=== PATIENT | female | born 1955 | race Caucasian/White ===

== ENCOUNTER 2019-03-15 07:39 | Day surgery (SDC) | payer BC, MEDICAID ==
[2019-03-15] MEDS ORDERED: Sodium Chloride 0.9% 10 ML Syringe FLUSH PRN (08:00)
--- NOTE | 2019-03-15 12:26 | OR ---
DATE OF PROCEDURE: 03/15/2019 SURGEON: Anitra Douglas MD POSTOPERATIVE CARE: Postoperative care will be provided mainly at the [address] [place] [address] [facility] in conjunction with [facility]. PREOPERATIVE DIAGNOSIS: Cataract, right eye. POSTOPERATIVE DIAGNOSIS: Cataract, right eye. PROCEDURE: Phacoemulsification with intraocular lens placement, right eye. ANESTHESIA: Topical and intracameral. ESTIMATED BLOOD LOSS: Minimal. COMPLICATIONS: None. PATHOLOGY SPECIMENS: None. SURGICAL FINDINGS: None. INDICATION FOR PROCEDURE: The patient is a 63-year-old female with history of a visually significant cataract in the right eye, which interfered with activities of daily living. This consisted of a nuclear sclerosis cataract. Following careful discussion of the risks, benefits and alternatives to cataract extraction with intraocular lens placement including blindness and , the patient elected to proceed, and informed, written consent was obtained prior to the procedure. DESCRIPTION OF THE PROCEDURE: The patient was previously identified, and a dre placed above the right eye. All sources, including the patient, indicated that the right eye was the correct eye. The patient was subsequently taken to the operating room where standard monitors were applied. The patient was then prepped and draped in the usual sterile fashion for ophthalmic surgery. Attention was first directed at the 12 o'clock position where a paracentesis port was fashioned. Shugar solution followed by Viscoat was instilled into the eye. Attention was then directed to the 8:30 position where a triplanar incision was made in a near-clear manner using a keratome. A continuous capsulorrhexis was then made using a combination of the cystotome and Utrata forceps. Hydrodissection was achieved using a balanced salt solution, and the lens rotated nicely. Phacoemulsification was then done using a modified rknasz-gdz-dyfebce technique without complication. Phaco time was 10.17 CDE. The remaining cortex was removed using the irrigation/aspiration handpiece. Provisc was then instilled into the eye. A Technis lens, model [id number], at 20.5 diopters was then placed in the capsular bag using an Ettrick injector. The remaining viscoelastic was removed using the irrigation/aspiration forceps. All wounds were then checked and found to be watertight. The lid speculum and drapes were removed. Maxitrol ointment was placed in the patient's right eye, and the eye was shielded. The patient tolerated the procedure well. The patient was instructed to follow up tomorrow. All needle and sponge counts were correct at the end of the procedure. Anitra Douglas MD /[id number]
== END 2019-03-15 09:19 | disposition home or self-care (01) ==
LOC: JP.SDS 07:39
PROVIDERS: ATTEND Ophthalmology
DX: H25.11 Age-related nuclear cataract, right eye (principal); I10 Essential (primary) hypertension; E78.5 Hyperlipidemia, unspecified; F17.200 Nicotine dependence, unspecified, uncomplicated; Z88.2 Allergy status to sulfonamides; Z88.8 Allergy status to other drugs, medicaments and biological substances
CPT/HCPCS: 66984; V2632

== ENCOUNTER 2019-05-03 06:23 | Day surgery (SDC) | payer MEDICAID ==
[2019-05-03] MEDS ORDERED: Sodium Chloride 0.9% 10 ML Syringe FLUSH PRN (07:00)
--- NOTE | 2019-05-03 10:45 | OR ---
DATE OF PROCEDURE: 05/03/2019 SURGEON: Anitra Douglas MD POSTOPERATIVE CARE: Postoperative care will be provided mainly at the [address] [place] [address] [facility] in conjunction with [facility]. PREOPERATIVE DIAGNOSIS: Cataract, left eye. POSTOPERATIVE DIAGNOSIS: Cataract, left eye. PROCEDURE: Phacoemulsification with intraocular lens placement, left eye. ANESTHESIA: Topical and intracameral. ESTIMATED BLOOD LOSS: Minimal. COMPLICATIONS: None. PATHOLOGY SPECIMENS: None. SURGICAL FINDINGS: None. INDICATION FOR PROCEDURE: The patient is a 63-year-old female with history of a visually significant cataract in the left eye, which interfered with activities of daily living. This consisted of a nuclear sclerosis cataract. Following careful discussion of the risks, benefits and alternatives to cataract extraction with intraocular lens placement including blindness and , the patient elected to proceed, and informed, written consent was obtained prior to the procedure. DESCRIPTION OF THE PROCEDURE: The patient was previously identified, and a dre placed above the left eye. All sources, including the patient, indicated that the left eye was the correct eye. The patient was subsequently taken to the operating room where standard monitors were applied. The patient was then prepped and draped in the usual sterile fashion for ophthalmic surgery. Attention was first directed at the 12 o'clock position where a paracentesis port was fashioned. Shugar solution followed by Viscoat was instilled into the eye. Attention was then directed to the 8:30 position where a triplanar incision was made in a near-clear manner using a keratome. A continuous capsulorrhexis was then made using a combination of the cystotome and Utrata forceps. Hydrodissection was achieved using a balanced salt solution, and the lens rotated nicely. Phacoemulsification was then done using a modified rhylhl-ibb-zqkbaxa technique without complication. Phaco time was 9.9 CDE. The remaining cortex was removed using the irrigation/aspiration handpiece. Provisc was then instilled into the eye. A Technis lens, model [id number], at 21.0 diopters was then placed in the capsular bag using an [place] injector. The remaining viscoelastic was removed using the irrigation/aspiration forceps. All wounds were then checked and found to be watertight. The lid speculum and drapes were removed. Maxitrol ointment was placed in the patient's left eye, and the eye was shielded. The patient tolerated the procedure well. The patient was instructed to follow up tomorrow. All needle and sponge counts were correct at the end of the procedure. Anitra Douglas MD /[id number]
== END 2019-05-03 08:19 | disposition home or self-care (01) ==
LOC: JP.SDS 06:23
PROVIDERS: ATTEND Ophthalmology
DX: H25.12 Age-related nuclear cataract, left eye (principal); I10 Essential (primary) hypertension; E78.00 Pure hypercholesterolemia, unspecified; F17.200 Nicotine dependence, unspecified, uncomplicated; Z88.2 Allergy status to sulfonamides; Z88.8 Allergy status to other drugs, medicaments and biological substances
CPT/HCPCS: V2632

== ENCOUNTER 2021-01-22 17:08 | Inpatient (IN) | payer MEDICARE ==
[2021-01-22] MEDS ORDERED: Ondansetron 4 MG/2 ML SDV IV PRN (17:20)
[2021-01-22] MEDS ORDERED: Sodium Chloride 0.9% 10 ML Syringe FLUSH PRN (17:20)
[2021-01-22] MEDS ORDERED: Polyethylene Glycol 3350 Powder 17 GM Packet PO PRN (17:20)
--- NOTE | 2021-01-22 17:24 | PCM.HP.2 ---
H&P History of Present Illness - General Date of Service: 01/22/21 Admit Problem/Dx: Admission Diagnosis/Problem Admission Diagnosis/Problem Hyponatremia Source of Information: Patient, Provider, RN Notes Reviewed History Limitations: Reports: No Limitations - History of Present Illness Initial Comments - Free Text/Narative: Ms. Kennedy 65-year-old woman who is admitted as a direct admission from the clinic with hyponatremia and infection of her left lower leg. She scraped her leg about 2 weeks ago and since then has developed infection with development of a large ulcerated area on the lateral aspect of the left lower leg. She had been seen and evaluated by Dr. Valderrama and the plan was to proceed with debridement of the wound tomorrow. She has been feeling well but on follow-up in the clinic labs showed a sodium yesterday of 125. She returned today for follow-up labs and sodium was further decreased at 121. She does have a history of chronic peripheral edema as well as significant daily alcohol intake of 12 to 16 ounces per day. - Related Data Allergies/Adverse Reactions: Allergies Allergy/AdvReac Type Severity Reaction Status Date / Time hydrochlorothiazide Allergy Unknown Chest Pain Verified 04/30/19 16:22 bacitracin Allergy Rash Verified 01/20/21 14:16 spectinomycin [From Trobicin] Allergy Swelling Verified 05/03/19 06:50 Sulfa (Sulfonamide Allergy Itching Verified 04/30/19 16:22 Antibiotics) Home Medications: Home Meds Aspirin [Halfprin] 81 mg PO DAILY 03/13/19 [History] amLODIPine [Norvasc] 5 mg PO DAILY 03/13/19 [History] gemfibroziL [Gemfibrozil] 600 mg PO BIDAC 03/13/19 [History] Multivitamin [Multi-Vitamin Daily] 1 each PO DAILY 04/03/19 [History] timoloL maleate [Timoptic 0.5% Ophth Soln] 1 drop EYEBOTH DAILY 05/03/19 [History] Ciprofloxacin HCl [Cipro] 500 mg PO BID 01/20/21 [History] Gabapentin [Neurontin] 100 mg PO TID 01/20/21 [History] Olmesartan Medoxomil [Benicar] 40 mg PO DAILY 01/20/21 [History] Past Medical History HEENT History: Reports: Allergic Rhinitis, Cataract, Impaired Vision Cardiovascular History: Reports: High Cholesterol, Hypertension Genitourinary History: Reports: None [employer] History: Reports: Musculoskeletal History: Reports: Fracture - Infectious Disease History Infectious Disease History: Reports: Measles, Mumps - Past Surgical History HEENT Surgical History: Reports: Cataract Surgery Cardiovascular Surgical History: Reports: None Female Surgical History: Reports: Breast Biopsy, Nephrectomy, Tubal Ligation, Other (See Below) Other Female Surgeries/Procedures: heminephrectomy Musculoskeletal Surgical History: Reports: None Social & Family History - Caffeine Use Caffeine Use: Reports: Coffee H&P Review of Systems - Review of Systems: Review Of Systems: See Below General: Reports: No Symptoms HEENT: Reports: No Symptoms Pulmonary: Reports: No Symptoms Cardiovascular: Reports: No Symptoms Gastrointestinal: Reports: No Symptoms Genitourinary: Reports: No Symptoms Musculoskeletal: Reports: No Symptoms Skin: Reports: Other (Large infected ulcer lateral aspect left lower leg) Psychiatric: Reports: No Symptoms Neurological: Reports: No Symptoms Hematologic/Lymphatic: Reports: No Symptoms Immunologic: Reports: No Symptoms Exam - Exam Exam: See Below - Exam General: Alert, Oriented, Cooperative, Mild Distress HEENT: Conjunctiva Clear, Hearing Intact, Mucosa Moist & [place], Normal Nasal Septum, Posterior Pharynx Clear, Pupils Equal Neck: Supple, Trachea Midline, +2 Carotid Pulse wo Bruit Lungs: Clear to Auscultation, Normal Respiratory Effort, Decreased Breath Sounds Cardiovascular: Regular Rate, Regular Rhythm, Normal S1, Normal S2. No: Systolic Murmur, Diastolic Murmur GI/Abdominal Exam: Soft, Non-Tender, No Organomegaly, No Distention Back Exam: Normal Inspection, Full Range of Motion Extremities: Non-Tender, Pedal Edema Skin: Wound (Large open wound with surrounding erythema lateral aspect left lower leg) Neurological: Cranial Nerves Intact, Strength Equal Bilateral, Normal Speech, Normal Tone, Sensation Intact. No: Focal Deficit Neuro Extensive - Mental Status: Alert, Oriented x3, Normal Mood/Affect, Normal Cognition, Memory Intact - Patient Data Result Diagrams: 01/22/21 17:30 *Q Meaningful Use (ADM) - VTE *Q VTE Pharmacological Contraindications *Q: Patient Scheduled Surgery - VTE Risk Assess *Q Each Risk Factor Represents 1 Point: Swollen Legs, Current Total Score 1 Point Risk Factors: 1 Each Risk Factor Represents 2 Points: Age 60 - 74 Years Total Score 2 Point Risk Factors: 2 Each Risk Factor Represents 3 Points: None Total Score 3 Point Risk Factors: 0 Each Risk Factor Represents 5 Points: None Total Score 5 Point Risk Factors: 0 Venous Thromboembolism Risk Factor Score *Q: 3 Problem List Initiated/Reviewed/Updated: Yes Orders Last 24hrs: Active Orders 24 hr Category Date Time Status Patient Status [ADT] Routine ADT 01/22/21 17:16 Ordered Ambulate [RC] QID Care 01/22/21 17:16 Ordered Height and Weight [RC] DAILY Care 01/22/21 17:16 Ordered Intake and Output [RC] QSHIFT Care 01/22/21 17:16 Ordered Notify Provider Consults [RC] ASDIRECTED Care 01/22/21 17:22 Ordered Notify Provider Vital Signs [RC] ASDIRECTED Care 01/22/21 17:16 Ordered Oxygen Therapy [RC] PRN Care 01/22/21 17:16 Ordered Peripheral IV Care [RC] . DIRECTED Care 01/22/21 17:22 Ordered Up With Assistance [RC] ASDIRECTED Care 01/22/21 17:16 Ordered Up to Chair [RC] QID Care 01/22/21 17:16 Ordered VTE/DVT Education [RC] Per Unit Routine Care 01/22/21 17:16 Ordered Vital Signs [RC] Q4H Care 01/22/21 17:16 Ordered Consult to Physician [CONS] Routine Cons 01/22/21 17:20 Ordered Nothing per Oral After Midnight Diet [DIET] Diet 01/23/21 Breakfast Ordered Regular Diet [DIET] Diet 01/22/21 Dinner Ordered BASIC METABOLIC PANEL,BMP [CHEM] Timed Lab 01/23/21 05:00 Ordered CBC WITH AUTO DIFF [HEME] Stat Lab 01/22/21 17:20 Ordered CBC WITH AUTO DIFF [HEME] Timed Lab 01/23/21 05:00 Ordered COMPREHENSIVE METABOLIC PN,CMP [CHEM] Stat Lab 01/22/21 17:20 Ordered SODIUM,NA [CHEM] Stat Lab 01/22/21 23:00 Ordered Acetaminophen [TylenoL] Med 01/22/21 17:20 Ordered 650 mg PO Q4H PRN Meropenem [Merrem] 1 gm Med 01/22/21 17:30 Ordered Sodium Chloride 0.9% [Normal Saline] 100 ml IV Q8H Ondansetron [Zofran] Med 01/22/21 17:20 Ordered 4 mg IV Q4H PRN Sodium Chloride 0.9% @ 125 MLS/HR (1000ml) Med 01/22/21 17:30 Ordered Sodium Chloride 0.9% [Normal Saline] 1,000 ml IV ASDIRECTED Sodium Chloride 0.9% [Saline Flush] Med 01/22/21 17:20 Ordered 10 ml FLUSH ASDIRECTED PRN polyethylene glycoL 3350 [MiraLAX] Med 01/22/21 17:20 Ordered 17 gm PO DAILY PRN Peripheral IV Insertion Adult [OM.PC] Routine Oth 01/22/21 17:20 Ordered VTE Pharmacological Contraindications [AST] Per Unit Oth 01/22/21 17:16 Ordered Routine Resuscitation Status Routine Resus Stat 01/22/21 17:16 Ordered Medication Orders Acetaminophen (Acetaminophen 325 Mg Tab) 650 mg PO Q4H PRN PRN Reason: Pain (Mild 1-3)/fever Sodium Chloride (Normal Saline) 1,000 mls @ 125 mls/hr IV ASDIRECTED JALYN Meropenem 1 gm/ Sodium (Chloride) 100 mls @ 200 mls/hr IV Q8H JALYN Ondansetron HCl (Ondansetron 4 Mg/2 Ml Sdv) 4 mg IV Q4H PRN PRN Reason: Nausea/Vomiting Polyethylene Glycol (Polyethylene Glycol 3350 Powder 17 Gm Packet) 17 gm PO DAILY PRN PRN Reason: Constipation Sodium Chloride (Sodium Chloride 0.9% 10 Ml Syringe) 10 ml FLUSH ASDIRECTED PRN PRN Reason: Keep Vein Open Assessment/Plan Comment:: ASSESSMENT AND PLAN HYPONATREMIA-may be delusional in nature, she does have peripheral edema. Less likely SIADH related to current infection. -IV normal saline -Reassess sodium later tonight and in a.m. INFECTED ULCER LEFT LOWER LEG-she scraped the leg with a fall about 2 weeks ago and it has become progressively worse during that period of time. -Consult Dr. Valderrama, if stable consider proceeding with debridement in a.m. -Meropenem 1 g IV every 8 hours pending cultures from surgery HISTORY OF ALCOHOL ABUSE-she admits to intake of 12 to 16 ounces of vodka per day -Alcohol withdrawal protocol -Banana bag MAINTENANCE ISSUES -DVT prophylaxis; hold on anticoagulation because of possible surgery -GI prophylaxis; not indicated -Haley catheter; not indicated -Nutrition; regular diet, n.p.o. after midnight -Nicotine dependence; she smokes but refuses nicotine replacement at this time CODE STATUS-FULL CODE ADMISSION STATUS-patient will be admitted to inpatient status, expect at least a 2 night hospital stay for evaluation and management of problems as outlined above. At the time of this admission I do not reasonably expected evaluation and management of this problem will require more than a 96 hour hospital stay. DISPOSITION-anticipate discharge to home after the hospital stay. PRIMARY CARE PROVIDER-Tanvi Aguillon - Mortality Measure Prognosis:: Good
[2021-01-22] MEDS ORDERED: Meropenem 1 GM in Sodium Chloride 0.9% 100 ML IV SCH (17:30)
[2021-01-22] MEDS ORDERED: MVI, Adult with Vitamin K 10 ML, Thiamine 100 MG, Folic Acid 1 MG, Magnesium Sulfate 2 ... IV ONE ×5 (17:49)
[2021-01-22] MEDS ORDERED: LORazepam 1 MG Tab PO SCH (18:00)
[2021-01-22] MEDS: Acetaminophen 325 MG Tab PO PRN ×2 (18:37→23:01)
[2021-01-22] MEDS: Meropenem 1 GM in Sodium Chloride 0.9% 100 ML IV SCH (18:38)
[2021-01-22] MEDS: Gabapentin 400 MG Cap PO SCH (19:39)
[2021-01-22] MEDS: Folic Acid 1 MG Tab PO SCH (19:39)
[2021-01-22] MEDS: Thiamine 100 MG Tab PO SCH (19:45)
[2021-01-23] MEDS: Gabapentin 400 MG Cap PO SCH ×2 (01:14→10:25)
[2021-01-23] MEDS: Acetaminophen 325 MG Tab PO PRN (03:44)
[2021-01-23] MEDS: Meropenem 1 GM in Sodium Chloride 0.9% 100 ML IV SCH ×2 (04:07→11:29)
[2021-01-23] MEDS: Sodium Chloride 0.9% 1,000 ML IV SCH ×2 (04:07→04:39)
--- NOTE | 2021-01-23 06:23 | PCM.SN.2 ---
- Free Text/Narrative Note: am labs O: Potassium 3.1. Sodium 128 A: hypokalemia P: Potassium 20 meq with lidocaine for comfort one, recheck Potassium at 0900
[2021-01-23] MEDS ORDERED: Gemfibrozil 600 MG Tab PO SCH (07:30)
[2021-01-23] MEDS: Folic Acid 1 MG Tab PO SCH (08:53)
[2021-01-23] MEDS: Thiamine 100 MG Tab PO SCH (08:54)
[2021-01-23] MEDS ORDERED: Aspirin 81 MG Tab.EC PO SCH (09:00)
[2021-01-23] MEDS ORDERED: Timolol Maleate 0.5% Ophth Soln 5 ML Bottle EYEBOTH SCH (09:00)
[2021-01-23] MEDS ORDERED: Losartan 50 MG Tab PO SCH (09:00)
[2021-01-23] MEDS: Potassium Chloride 20 MEQ, Lidocaine 1% 2 ML in Sodium Chloride 0.9% 100 ML IV SCH ×2 (09:14→13:44)
[2021-01-23] MEDS ORDERED: Lidocaine 2% Jelly 30 ML Tube ONE (10:56)
[2021-01-23] MEDS ORDERED: Lidocaine 1% with EPINEPHrine 1:100,000 50 ML MDV ONE (10:57)
[2021-01-23] MEDS ORDERED: Bupivacaine 0.5% 50 ML MDV ONE (10:57)
--- NOTE | 2021-01-23 13:47 | PCM.DCSUM1 ---
Discharge Summary - Hospital Course Brief History: Ms. Kennedy is a 65-year-old woman who was admitted to observation status as a direct admission from the clinic with hyponatremia. - Discharge Data Discharge Date: 01/23/21 Discharge Disposition: Home, Self-Care 01 Condition: Fair - Referral to Home Health Primary Care Physician: Tanvi Graves PA-C - Discharge Diagnosis/Problem(s) (1) Ulcer of left lower extremity SNOMED Code(s): 47644125 ICD Code: L97.929 - NON-PRS CHRONIC ULC UNSP PRT OF L LOW LEG W UNSP SEVERITY Status: Acute Current Visit: Yes (2) Infection SNOMED Code(s): 57991965 ICD Code: B99.9 - UNSPECIFIED INFECTIOUS DISEASE Status: Acute Current Visit: Yes Problem Details: lower leg (3) Hyponatremia SNOMED Code(s): 96004742 ICD Code: E87.1 - HYPO-OSMOLALITY AND HYPONATREMIA Status: Acute Current Visit: Yes (4) HTN (hypertension) SNOMED Code(s): 13562642 ICD Code: I10 - ESSENTIAL (PRIMARY) HYPERTENSION Status: Chronic Current Visit: No (5) Tobacco use disorder SNOMED Code(s): 130623325 ICD Code: F17.200 - NICOTINE DEPENDENCE, UNSPECIFIED, UNCOMPLICATED Status: Chronic Current Visit: No (6) EtOH dependence SNOMED Code(s): 34511805 ICD Code: F10.20 - ALCOHOL DEPENDENCE, UNCOMPLICATED Status: Chronic Current Visit: No - Patient Summary/Data Consults: Consultations 01/22/21 17:20 Consult to Physician [CONS] Routine Consulting Provider: Williams Valderrama Call Completed to Consulting Physician: Yes Reason for Consult: Wound infection 01/23/21 05:47 Consult to Physical Therapy [PT Evaluation and Treatment] [CONS] Routine Please Evaluate and Treat. PT Reason for Consult: Strengthening This query below is only for informational purposes and is not editable. Admission Diagnosis/Problem: Hyponatremia Hospital Course: Ms. Kennedy 65-year-old woman who is admitted as a direct admission from the clinic with hyponatremia and infection of her left lower leg. She scraped her leg about 2 weeks ago and since then has developed infection with development of a large ulcerated area on the lateral aspect of the left lower leg. She had been seen and evaluated by Dr. Valderrama and the plan was to proceed with debridement of the wound. She has been feeling well but on follow-up in the clinic labs showed a sodium yesterday of 125. She returned today for follow-up labs and sodium was further decreased at 121. She does have a history of chronic peripheral edema as well as significant daily alcohol intake of 12 to 16 ounces per day. On admission she was started on IV fluids with normal saline 125 cc/h. She also received a banana bag and was started on oral vitamin B12 and folic acid. By the following morning her sodium level had improved to 128. She was seen and evaluated by Dr. Valderrama. She was taken to the operating room for debridement of her left lower leg wound. She will be discharged home and will be restarted on her oral antibiotic therapy with ciprofloxacin. Wound VAC will be placed on and will be changed every third day. Follow-up appointment will be scheduled with Dr. Valderrama as well as a follow-up appointment with primary care provider within 1 week. - Patient Instructions Diet: Low Sodium Activity: As Tolerated Other/Special Instructions: Please schedule follow-up appointment with Dr. Valderrama. Please schedule follow-up appointment with primary care provider within 1 week. Continue antibiotic therapy with ciprofloxacin - Discharge Plan *PRESCRIPTION DRUG MONITORING PROGRAM REVIEWED*: Not Applicable *COPY OF PRESCRIPTION DRUG MONITORING REPORT IN PATIENT [place]: Not Applicable Home Medications: Home Meds gemfibroziL [Gemfibrozil] 600 mg PO BIDAC 03/13/19 [History] Ciprofloxacin HCl [Cipro] 500 mg PO BID 01/20/21 [History] Gabapentin [Neurontin] 100 mg PO TID 01/20/21 [History] Olmesartan Medoxomil [Benicar] 40 mg PO DAILY 01/20/21 [History] Referrals: Williams Valderrama MD [Physician] - 01/29/21 1:00 pm (Please arrive 15 minutes early to register for your appointment. ) - Discharge Summary/Plan Comment DC Time >30 min.: No Total # of Minutes for Discharge Time: 20 - Patient Data Vitals - Most Recent: Last Vital Signs Temp 96.8 F L 01/23/21 12:40 Pulse 82 01/23/21 12:55 Resp 18 01/23/21 12:55 BP 105/68 01/23/21 12:55 Pulse Ox 98 01/23/21 12:55 Weight - Most Recent: 124 lb 15.998 oz I&O - Last 24 hours: Intake & Output 01/22/21 01/23/21 01/23/21 22:59 06:59 14:59 Intake Total 1195 75 Output Total 162 482 4497 Balance -708 356 -5120 Lab Results - Last 24 hrs: Laboratory Results - last 24 hr 01/22/21 01/22/21 01/22/21 Range/Units 17:30 17:30 23:12 WBC 16.0 H (4.5-11.0) K/uL RBC 3.33 (3.30-5.50) M/uL Hgb 12.1 (12.0-15.0) g/dL Hct 33.1 L (36.0-48.0) % MCV 99 H (80-98) fL MCH 36 H (27-31) pg MCHC 37 H (32-36) % Plt Count 366 (150-400) K/uL Neut % (Auto) 82.1 H (36-66) % Lymph % (Auto) 9.5 L (24-44) % [place] % (Auto) 7.5 H (2-6) % Eos % (Auto) 0.7 L (2-4) % Baso % (Auto) 0.2 (0-1) % Sodium 120 L 124 L (140-148) mmol/L Potassium 3.7 (3.6-5.2) mmol/L Chloride 87 L (100-108) mmol/L Carbon Dioxide 17 L (21-32) mmol/L Anion Gap 19.7 H (5.0-14.0) mmol/L BUN 11 (7-18) mg/dL Creatinine 0.8 (0.6-1.0) mg/dL Est Cr Clr Drug Dosing TNP Estimated GFR (MDRD) > 60 (>60) Glucose 103 (74-106) mg/dL Calcium 8.7 (8.5-10.1) mg/dL Total Bilirubin 0.3 (0.2-1.0) mg/dL AST 34 (15-37) U/L ALT 27 (12-78) U/L Alkaline Phosphatase 107 (46-116) U/L Total Protein 7.0 (6.4-8.2) g/dL Albumin 3.0 L (3.4-5.0) g/dL Globulin 4.0 H (2.3-3.5) g/dL Albumin/Globulin Ratio 0.8 L (1.2-2.2) 01/23/21 01/23/21 01/23/21 Range/Units 04:59 04:59 09:22 WBC 12.6 H (4.5-11.0) K/uL RBC 2.96 L (3.30-5.50) M/uL Hgb 10.4 L (12.0-15.0) g/dL Hct 29.6 L (36.0-48.0) % MCV 100 H (80-98) fL MCH 35 H (27-31) pg MCHC 35 (32-36) % Plt Count 359 (150-400) K/uL Neut % (Auto) 83.6 H (36-66) % Lymph % (Auto) 8.2 L (24-44) % [place] % (Auto) 6.7 H (2-6) % Eos % (Auto) 1.3 L (2-4) % Baso % (Auto) 0.2 (0-1) % Sodium 128 L (140-148) mmol/L Potassium 3.1 L 3.5 L (3.6-5.2) mmol/L Chloride 96 L (100-108) mmol/L Carbon Dioxide 17 L (21-32) mmol/L Anion Gap 18.1 H (5.0-14.0) mmol/L BUN 9 (7-18) mg/dL Creatinine 0.7 (0.6-1.0) mg/dL Est Cr Clr Drug Dosing 68.27 Estimated GFR (MDRD) > 60 (>60) Glucose 90 (74-106) mg/dL Calcium 8.0 L (8.5-10.1) mg/dL Total Bilirubin (0.2-1.0) mg/dL AST (15-37) U/L ALT (12-78) U/L Alkaline Phosphatase (46-116) U/L Total Protein (6.4-8.2) g/dL Albumin (3.4-5.0) g/dL Globulin (2.3-3.5) g/dL Albumin/Globulin Ratio (1.2-2.2) Med Orders - Current: Current Medications Acetaminophen (Acetaminophen 325 Mg Tab) 650 mg PO Q4H PRN PRN Reason: Pain (Mild 1-3)/fever Last Admin: 01/23/21 03:44 Dose: 650 mg Documented by: Aspirin (Aspirin 81 Mg Tab.Ec) 81 mg PO DAILY [facility] Last Admin: 01/23/21 08:53 Dose: Not Given Documented by: Folic Acid (Folic Acid 1 Mg Tab) 1 mg PO DAILY [facility] Last Admin: 01/23/21 08:53 Dose: Not Given Documented by: Gabapentin (Gabapentin 400 Mg Cap) 400 mg PO Q8H [facility] Stop: 01/26/21 18:01 Last Admin: 01/23/21 10:25 Dose: Not Given Documented by: Gemfibrozil (Gemfibrozil 600 Mg Tab) 600 mg PO BIDAC [facility] Last Admin: 01/23/21 08:53 Dose: Not Given Documented by: Sodium Chloride (Normal Saline) 1,000 mls @ 125 mls/hr IV ASDIRECTED [facility] Last Admin: 01/23/21 04:39 Dose: 125 mls/hr Documented by: Meropenem 1 gm/ Sodium (Chloride) 100 mls @ 200 mls/hr IV Q8H [facility] Last Admin: 01/23/21 11:29 Dose: 200 mls/hr Documented by: Lorazepam (Lorazepam 1 Mg Tab) 0 mg PO ASDIRECTED [facility]; Protocol Losartan Potassium (Losartan 50 Mg Tab) 100 mg PO DAILY [facility] Last Admin: 01/23/21 08:53 Dose: Not Given Documented by: Ondansetron HCl (Ondansetron 4 Mg/2 Ml Sdv) 4 mg IV Q4H PRN PRN Reason: Nausea/Vomiting Polyethylene Glycol (Polyethylene Glycol 3350 Powder 17 Gm Packet) 17 gm PO DAILY PRN PRN Reason: Constipation Sodium Chloride (Sodium Chloride 0.9% 10 Ml Syringe) 10 ml FLUSH ASDIRECTED PRN PRN Reason: Keep Vein Open Thiamine HCl (Thiamine 100 Mg Tab) 100 mg PO DAILY [facility] Last Admin: 01/23/21 08:54 Dose: Not Given Documented by: Timolol Maleate (Timolol Maleate 0.5% Ophth Soln 5 Ml Bottle) 0 ml EYEBOTH DAILY [facility] Last Admin: 01/23/21 09:07 Dose: 1 drop Documented by: Discontinued Medications Bupivacaine HCl (Bupivacaine 0.5% 50 Ml Mdv) Confirm Administered Dose 50 ml .ROUTE .STK-MED ONE Stop: 01/23/21 10:58 Meropenem 1 gm/ Sodium (Chloride) 100 mls @ 200 mls/hr IV Q8H [facility] Last Admin: 01/22/21 18:54 Dose: Not Given Documented by: Multivitamins/Minerals 10 ml/Thiamine HCl 100 mg/ Folic Acid 1 mg/ Magnesium Sulfate 2 gm/ Sodium Chloride 1,015.2 mls @ 100 mls/hr IV ONETIME ONE Stop: 01/23/21 03:58 Last Admin: 01/22/21 19:38 Dose: 100 mls/hr Documented by: Potassium Chloride 20 meq/Lidocaine HCl 2 ml/ Sodium Chloride 112 mls @ 56 mls/hr IV Q2H [facility] Stop: 01/23/21 12:59 Last Admin: 01/23/21 09:14 Dose: 56 mls/hr Documented by: Lidocaine HCl (Lidocaine 2% Jelly 30 Ml Tube) Confirm Administered Dose 30 ml .ROUTE .STK-MED ONE Stop: 01/23/21 10:57 Lidocaine/Epinephrine (Lidocaine 1% With Epinephrine 1:100,000 50 Ml Mdv) Confirm Administered Dose 50 ml .ROUTE .STK-MED ONE Stop: 01/23/21 10:58 - Exam General: Reports: Alert, Oriented, Cooperative, No Acute Distress Lungs: Reports: Clear to Auscultation, Normal Respiratory Effort Cardiovascular: Reports: Regular Rate, Regular Rhythm, No Murmurs GI/Abdominal Exam: Soft, Non-Tender, No Organomegaly, No Distention Skin: Reports: Other (Large ulcer lateral aspect left lower leg) *Q Meaningful Use (DIS) - VTE *Q VTE Pharmacological Contraindications *Q: Patient Scheduled Surgery
== END 2021-01-23 17:04 | disposition home or self-care (01) | DRG 641 ==
LOC: JP.MS 17:08
PROVIDERS: ADMIT Hospitalist; ATTEND Hospitalist
DX: E87.1 Hypo-osmolality and hyponatremia (principal); L97.929 Non-pressure chronic ulcer of unspecified part of left lower leg with unspecified severity; I10 Essential (primary) hypertension; F17.210 Nicotine dependence, cigarettes, uncomplicated; F10.20 Alcohol dependence, uncomplicated; E87.6 Hypokalemia; E78.5 Hyperlipidemia, unspecified; Z98.42 Cataract extraction status, left eye; Z98.41 Cataract extraction status, right eye; Z98.890 Other specified postprocedural states; Z87.81 Personal history of (healed) traumatic fracture; Z98.51 Tubal ligation status; Z90.5 Acquired absence of kidney
CPT/HCPCS: 36415; 80048; 80053; 84132; 84295; 85025; 97116-GP; 97162-GP; 97535-GP; A9270-GY; J2185; J3411; J3475; J3480; J3490; J7030

== ENCOUNTER 2021-02-16 11:16 | Emergency (ER) | payer MEDICARE | END 2021-02-16 12:00 | disposition left against medical advice (07) | LOC: JP.ED 11:16 | DX: Z53.21 Procedure and treatment not carried out due to patient leaving prior to being seen by health care provider (principal) ==

== ENCOUNTER 2021-02-16 12:51 | Emergency (ER) | payer MEDICARE ==
[2021-02-16] MEDS ORDERED: Sodium Chloride 0.9% 10 ML Syringe FLUSH PRN (15:55)
--- NOTE | 2021-02-16 15:58 | EDM.PDOC ---
<OfficerGalen - Last Filed: 02/16/21 17:47> ED HPI GENERAL MEDICAL PROBLEM - General Chief Complaint: General Stated Complaint: LATHARGIC Time Seen by Provider: 02/16/21 15:40 Source of Information: Reports: Patient, Family, Provider, RN Notes Reviewed History Limitations: Reports: No Limitations - History of Present Illness INITIAL COMMENTS - FREE TEXT/NARRATIVE: This 5-year-old female presents emergency department day complaint of lethargy, I did receive a call from the wound care physician Dr. Valderrama who is evaluating her lower extremity wound states the patient is very slow to respond does not seem to be acting herself. Daughter is with states she usually can carry on a good conversation she uses a walker at home. She does respond to me does respond to nursing staff but it is very slow. She denies any nausea vomiting shortness of breath or chest pain no difficulty with urination. Daughter states she did notice she had urine and it was foul-smelling. - Related Data Allergies Allergy/AdvReac Type Severity Reaction Status Date / Time hydrochlorothiazide Allergy Unknown Chest Pain Verified 02/16/21 15:42 bacitracin Allergy Rash Verified 02/16/21 15:42 spectinomycin [From Trobicin] Allergy Swelling Verified 02/16/21 15:42 Sulfa (Sulfonamide Allergy Itching Verified 02/16/21 15:42 Antibiotics) Home Meds: Home Meds gemfibroziL [Gemfibrozil] 600 mg PO BIDAC 03/13/19 [History] Gabapentin [Neurontin] 300 mg PO TID 01/20/21 [History] Olmesartan Medoxomil [Benicar] 40 mg PO DAILY 01/20/21 [History] Rosuvastatin [Crestor] 5 mg PO DAILY 02/16/21 [History] cilostazoL [Cilostazol] 50 mg PO BID 02/16/21 [History] Past Medical History HEENT History: Reports: Allergic Rhinitis, Cataract, Impaired Vision Cardiovascular History: Reports: High Cholesterol, Hypertension [employer] History: Reports: Musculoskeletal History: Reports: Fracture Dermatologic History: Reports: Cellulitis, Other (See Below) Other Dermatologic History: bilateral leg wounds - Infectious Disease History Infectious Disease History: Reports: Measles, Mumps - Past Surgical History HEENT Surgical History: Reports: Cataract Surgery Female Surgical History: Reports: Breast Biopsy, Nephrectomy, Tubal Ligation, Other (See Below) Other Female Surgeries/Procedures: left heminephrectomy Social & Family History - Tobacco Use Tobacco Use Status *Q: Light Tobacco User Years of Tobacco use: 50 Packs/Tins Daily: 0.5 - Caffeine Use Caffeine Use: Reports: Coffee - Alcohol Use Days Per Week of Alcohol Use: 7 Number of Drinks Per Day: 4 Total Drinks Per Week: 28 - Recreational Drug Use Recreational Drug Use: No ED ROS GENERAL - Review of Systems Review Of Systems: See Below Constitutional: Reports: Weakness, Other (Slow to respond). 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 spines bilaterally I did remove the wound wrapping up her chronic wounds the left looks significantly worse than the right there is some black eschar present on the left significant amount of weeping and drainage appreciate any red streaks or erythema progressing up the legs pedal pulses significantly diminished Exam Limited By: No Limitations General Appearance: Alert, No Apparent Distress, Other (Slow to respond) Eye Exam: Bilateral Eye: Normal Inspection Respiratory/Chest: No Respiratory Distress, Lungs Clear, Normal Breath Sounds, No Accessory Muscle Use, Chest Non-Tender Cardiovascular: Regular Rate, Rhythm, No Murmur GI/Abdominal: Soft, Non-Tender Back Exam: No: CVA Tenderness (R), CVA Tenderness (L) Extremities: Pedal Edema Course - Re-Assessments/Exams Free Text/Narrative Re-Assessment/Exam: 02/16/21 17:35 Called and discussed case with hospitalist on-call personally had no beds so we will manage her here in the emergency department plan is to slowly raise her sodium no greater than 6 mEq in a 24-hour. She is currently at 113 we will check sodiums every 2 hours we will use normal saline at 100 mEq/h she does have a significant white count source has not been identified will cover with antibiotics and the need I am suspicious it may be the chronic wounds which family states have gotten worse chest x-ray is unremarkable urine is unremarkable. 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 Also may have some cellulitis. Sepsis Event Note (ED) - Evaluation Sepsis Screening Result: No Definite Risk <Kyler Hernandez - Last Filed: 02/17/21 04:04> Course - Vital Signs Last Recorded V/S: Last Vital Signs Temp 97.2 F 02/16/21 23:00 Pulse 105 H 02/16/21 22:30 Resp 18 02/16/21 22:30 BP 128/59 L 02/16/21 22:30 Pulse Ox 98 02/16/21 22:30 - Orders/Labs/Meds Orders: Active Orders 24 hr Category Date Time Status Chest 1V Frontal [CR] Urgent Exams 02/16/21 17:22 Taken CULTURE BLOOD [BC] Urgent Lab 02/16/21 17:15 Received CULTURE BLOOD [BC] Urgent Lab 02/16/21 17:20 Received Blood Culture x2 Reflex Set [OM.PC] Urgent Oth 02/16/21 16:47 Ordered Peripheral IV Insertion Adult [OM.PC] Urgent Oth 02/16/21 15:55 Ordered Labs: Laboratory Tests 02/16/21 02/16/21 02/16/21 Range/Units 16:10 16:10 16:10 WBC 26.2 H (4.5-11.0) K/uL RBC 3.58 (3.30-5.50) M/uL Hgb 12.3 (12.0-15.0) g/dL Hct 33.7 L (36.0-48.0) % MCV 94 (80-98) fL MCH 34 H (27-31) pg MCHC 37 H (32-36) % Plt Count 465 H (150-400) K/uL Add Manual Diff Yes Neutrophils % (Manual) 74 H (36-66) % Band Neutrophils % 10 (5-11) % Lymphocytes % (Manual) 11 L (24-44) % Monocytes % (Manual) 3 (2-6) % Eosinophils % (Manual) 2 (2-4) % Sodium 113 L* (140-148) mmol/L Potassium 4.5 (3.6-5.2) mmol/L Chloride 82 L (100-108) mmol/L Carbon Dioxide 15 L (21-32) mmol/L Anion Gap 20.5 H (5.0-14.0) mmol/L BUN 24 H D (7-18) mg/dL Creatinine 1.2 H D (0.6-1.0) mg/dL Est Cr Clr Drug Dosing 41.50 mL/min Estimated GFR (MDRD) 45 L (>60) Glucose 102 (74-106) mg/dL Lactic Acid 1.2 (0.4-2.0) mmol/L Calcium 9.3 D (8.5-10.1) mg/dL Total Bilirubin 0.2 (0.2-1.0) mg/dL AST 22 (15-37) U/L ALT 21 (12-78) U/L Alkaline Phosphatase 121 H (46-116) U/L Troponin I < 0.017 (0.000-0.056) ng/mL C-Reactive Protein (0.0-0.3) mg/dL Total Protein 7.1 (6.4-8.2) g/dL Albumin 2.8 L (3.4-5.0) g/dL Globulin 4.3 H (2.3-3.5) g/dL Albumin/Globulin Ratio 0.7 L (1.2-2.2) Lipase 87 (73-393) U/L Procalcitonin ng/mL Urine Color (YELLOW) Urine Appearance (CLEAR) Urine pH (5.0-8.0) Ur Specific Denhoff (1.008-1.030) Urine Protein (NEGATIVE) mg/dL Urine Glucose (UA) (NEGATIVE) mg/dL Urine Ketones (NEGATIVE) mg/dL Urine Occult Blood (NEGATIVE) Urine Nitrite (NEGATIVE) Urine Bilirubin (NEGATIVE) Urine Urobilinogen (0.2-1.0) EU/dL Ur Leukocyte Esterase (NEGATIVE) Urine RBC (0-5) Urine WBC (0-5) Ur Epithelial Cells Amorphous Sediment Urine Bacteria Urine Mucus SARS CoV-2 RNA Rapid ALYSSA 09/27/21 09/27/21 09/27/21 Range/Units 16:26 16:26 16:39 WBC (4.5-11.0) K/uL RBC (3.30-5.50) M/uL Hgb (12.0-15.0) g/dL Hct (36.0-48.0) % MCV (80-98) fL MCH (27-31) pg MCHC (32-36) % Plt Count (150-400) K/uL Add Manual Diff Neutrophils % (Manual) (36-66) % Band Neutrophils % (5-11) % Lymphocytes % (Manual) (24-44) % Monocytes % (Manual) (2-6) % Eosinophils % (Manual) (2-4) % Sodium (140-148) mmol/L Potassium (3.6-5.2) mmol/L Chloride (100-108) mmol/L Carbon Dioxide (21-32) mmol/L Anion Gap (5.0-14.0) mmol/L BUN (7-18) mg/dL Creatinine (0.6-1.0) mg/dL Est Cr Clr Drug Dosing mL/min Estimated GFR (MDRD) (>60) Glucose (74-106) mg/dL Lactic Acid (0.4-2.0) mmol/L Calcium (8.5-10.1) mg/dL Total Bilirubin (0.2-1.0) mg/dL AST (15-37) U/L ALT (12-78) U/L Alkaline Phosphatase (46-116) U/L Troponin I (0.000-0.056) ng/mL C-Reactive Protein 4.81 H (0.0-0.3) mg/dL Total Protein (6.4-8.2) g/dL Albumin (3.4-5.0) g/dL Globulin (2.3-3.5) g/dL Albumin/Globulin Ratio (1.2-2.2) Lipase (73-393) U/L Procalcitonin 0.07 ng/mL Urine Color Yellow (YELLOW) Urine Appearance Clear (CLEAR) Urine pH 6.5 (5.0-8.0) Ur Specific Denhoff 1.015 (1.008-1.030) Urine Protein Negative (NEGATIVE) mg/dL Urine Glucose (UA) Normal (NEGATIVE) mg/dL Urine Ketones Negative (NEGATIVE) mg/dL Urine Occult Blood Negative (NEGATIVE) Urine Nitrite Negative (NEGATIVE) Urine Bilirubin Negative (NEGATIVE) Urine Urobilinogen 0.2 (0.2-1.0) EU/dL Ur Leukocyte Esterase Negative (NEGATIVE) Urine RBC 0-5 (0-5) Urine WBC Not seen (0-5) Ur Epithelial Cells Moderate Amorphous Sediment Few Urine Bacteria Moderate Urine Mucus Not seen SARS CoV-2 RNA Rapid ALYSSA 02/16/21 02/16/21 02/16/21 Range/Units 19:12 21:04 22:30 WBC (4.5-11.0) K/uL RBC (3.30-5.50) M/uL Hgb (12.0-15.0) g/dL Hct (36.0-48.0) % MCV (80-98) fL MCH (27-31) pg MCHC (32-36) % Plt Count (150-400) K/uL Add Manual Diff Neutrophils % (Manual) (36-66) % Band Neutrophils % (5-11) % Lymphocytes % (Manual) (24-44) % Monocytes % (Manual) (2-6) % Eosinophils % (Manual) (2-4) % Sodium 114 L* 115 L* (140-148) mmol/L Potassium (3.6-5.2) mmol/L Chloride (100-108) mmol/L Carbon Dioxide (21-32) mmol/L Anion Gap (5.0-14.0) mmol/L BUN (7-18) mg/dL Creatinine (0.6-1.0) mg/dL Est Cr Clr Drug Dosing mL/min Estimated GFR (MDRD) (>60) Glucose (74-106) mg/dL Lactic Acid (0.4-2.0) mmol/L Calcium (8.5-10.1) mg/dL Total Bilirubin (0.2-1.0) mg/dL AST (15-37) U/L ALT (12-78) U/L Alkaline Phosphatase (46-116) U/L Troponin I (0.000-0.056) ng/mL C-Reactive Protein (0.0-0.3) mg/dL Total Protein (6.4-8.2) g/dL Albumin (3.4-5.0) g/dL Globulin (2.3-3.5) g/dL Albumin/Globulin Ratio (1.2-2.2) Lipase (73-393) U/L Procalcitonin ng/mL Urine Color (YELLOW) Urine Appearance (CLEAR) Urine pH (5.0-8.0) Ur Specific Denhoff (1.008-1.030) Urine Protein (NEGATIVE) mg/dL Urine Glucose (UA) (NEGATIVE) mg/dL Urine Ketones (NEGATIVE) mg/dL Urine Occult Blood (NEGATIVE) Urine Nitrite (NEGATIVE) Urine Bilirubin (NEGATIVE) Urine Urobilinogen (0.2-1.0) EU/dL Ur Leukocyte Esterase (NEGATIVE) Urine RBC (0-5) Urine WBC (0-5) Ur Epithelial Cells Amorphous Sediment Urine Bacteria Urine Mucus SARS CoV-2 RNA Rapid ALYSSA Negative 02/16/21 Range/Units 22:58 WBC (4.5-11.0) K/uL RBC (3.30-5.50) M/uL Hgb (12.0-15.0) g/dL Hct (36.0-48.0) % MCV (80-98) fL MCH (27-31) pg MCHC (32-36) % Plt Count (150-400) K/uL Add Manual Diff Neutrophils % (Manual) (36-66) % Band Neutrophils % (5-11) % Lymphocytes % (Manual) (24-44) % Monocytes % (Manual) (2-6) % Eosinophils % (Manual) (2-4) % Sodium 115 L* (140-148) mmol/L Potassium (3.6-5.2) mmol/L Chloride (100-108) mmol/L Carbon Dioxide (21-32) mmol/L Anion Gap (5.0-14.0) mmol/L BUN (7-18) mg/dL Creatinine (0.6-1.0) mg/dL Est Cr Clr Drug Dosing mL/min Estimated GFR (MDRD) (>60) Glucose (74-106) mg/dL Lactic Acid (0.4-2.0) mmol/L Calcium (8.5-10.1) mg/dL Total Bilirubin (0.2-1.0) mg/dL AST (15-37) U/L ALT (12-78) U/L Alkaline Phosphatase (46-116) U/L Troponin I (0.000-0.056) ng/mL C-Reactive Protein (0.0-0.3) mg/dL Total Protein (6.4-8.2) g/dL Albumin (3.4-5.0) g/dL Globulin (2.3-3.5) g/dL Albumin/Globulin Ratio (1.2-2.2) Lipase (73-393) U/L Procalcitonin ng/mL Urine Color (YELLOW) Urine Appearance (CLEAR) Urine pH (5.0-8.0) Ur Specific Denhoff (1.008-1.030) Urine Protein (NEGATIVE) mg/dL Urine Glucose (UA) (NEGATIVE) mg/dL Urine Ketones (NEGATIVE) mg/dL Urine Occult Blood (NEGATIVE) Urine Nitrite (NEGATIVE) Urine Bilirubin (NEGATIVE) Urine Urobilinogen (0.2-1.0) EU/dL Ur Leukocyte Esterase (NEGATIVE) Urine RBC (0-5) Urine WBC (0-5) Ur Epithelial Cells Amorphous Sediment Urine Bacteria Urine Mucus SARS CoV-2 RNA Rapid ALYSSA Meds: Medications Discontinued Medications Generic Name Dose Route Start Last Admin Trade Name Freq PRN Reason Stop Dose Admin Acetaminophen 650 mg 02/16/21 20:47 02/16/21 20:54 Acetaminophen 325 Mg Tab PO 02/16/21 20:48 650 mg NOW ONE Administration Lactated Ringer's 1,000 mls @ 500 mls/hr 02/16/21 16:00 02/16/21 16:30 Ringers, Lactated IV 500 mls/hr ASDIRECTED JALYN Administration Sodium Chloride 1,000 mls @ 100 mls/hr 02/16/21 17:30 02/16/21 17:50 Normal Saline IV 100 mls/hr ASDIRECTED JALYN Administration Vancomycin HCl 1 gm/ Sodium 250 mls @ 150 mls/hr 02/16/21 18:00 02/16/21 19:18 Chloride IV 150 mls/hr Q12H JALYN Administration Piperacillin Sod/Tazobactam 100 mls @ 100 mls/hr 02/16/21 17:45 02/16/21 18:05 Sod 4.5 gm/ Sodium Chloride IV 100 mls/hr Q6H JALYN Administration Sodium Chloride 10 ml 02/16/21 15:55 02/16/21 16:57 Sodium Chloride 0.9% 10 Ml Syringe FLUSH 10 ml ASDIRECTED PRN Administration Keep Vein Open - Re-Assessments/Exams Free Text/Narrative Re-Assessment/Exam: 02/16/21 21:32 Care turned over from Officer pending possible disposition to [facility] in [place]. Sodium replacement resulted in a sodium of 114 after 2 hours, 115 after 4 hours which is right on schedule. I was informed that the patient may be able to be admitted here in the morning if she was not accepted at a transfer hospital by 7 AM, I did discuss this with Dr. Ferrer and he agreed to see her in the morning for admission if transfer can be arranged by that time. We will continue to follow her sodium every 2 hours through the night. 02/16/21 22:17 Patient remained stable, [facility] called and does have a bed available now, she was accepted by Dr. Morgan. She will be transferred by EMS. Departure - Departure Time of Disposition: 23:17 Sepsis Event Note (ED) - Focused Exam Vital Signs: Vital Signs Temp Pulse Resp BP Pulse Ox 02/16/21 23:00 97.2 F 02/16/21 22:30 105 H 18 128/59 L 98 02/16/21 21:15 107 H 103/51 L 02/16/21 20:40 106 H 110/75 02/16/21 20:10 106 H 119/94 H 02/16/21 19:40 107 H 108/57 L 02/16/21 19:11 109 H 101/17 L
[2021-02-16] MEDS ORDERED: Lactated Ringers 1,000 ML IV SCH (16:00)
[2021-02-16] MEDS ORDERED: Sodium Chloride 0.9% 1,000 ML IV SCH (17:30)
[2021-02-16] MEDS ORDERED: Piperacillin/Tazobactam 4.5 GM in Sodium Chloride 0.9% 100 ML IV SCH (17:45)
[2021-02-16] MEDS ORDERED: Acetaminophen 325 MG Tab PO ONE (20:47)
--- NOTE | 2021-02-17 09:21 | CR ---
CHEST: Portable 02/16/2021 at 6:30 PM CLINICAL HISTORY:Elevated white count COMPARISON:None FINDINGS: The heart size, pulmonary vascularity and hilar structures are normal. No infiltrate effusion or pneumothorax is seen. Lungs are hyperaerated. There are atherosclerotic changes in the aorta. IMPRESSION: No acute cardiopulmonary process.
== END 2021-02-16 23:18 | disposition other institution (70) ==
LOC: JP.ED 12:51
DX: E87.1 Hypo-osmolality and hyponatremia (principal); I70.229 Atherosclerosis of native arteries of extremities with rest pain, unspecified extremity; E78.00 Pure hypercholesterolemia, unspecified; I10 Essential (primary) hypertension; Z72.0 Tobacco use; Z88.8 Allergy status to other drugs, medicaments and biological substances; Z88.1 Allergy status to other antibiotic agents; Z88.2 Allergy status to sulfonamides; Z79.899 Other long term (current) drug therapy; Z20.822 Contact with and (suspected) exposure to COVID-19
CPT/HCPCS: 36415; 51701; 71045; 80053; 81001; 83605; 83690; 84145; 84295; 84484; 85025; 86140; 87040; 96365; 96366; 96367; 99285; A9270; J2543; J3370; J7030; J7050; J7120; U0002